=== PATIENT | male | born 1970 | race Asian ===

== ENCOUNTER 2018-07-04 20:31 | Inpatient (IN) | payer BC ==
[2018-07-04] MEDS: BENAZEPRIL 40 MG TAB PO (21:00)
[2018-07-04] MEDS: AMLODIPINE 10 MG TAB PO (21:00)
[2018-07-04] MEDS ORDERED: ACETAMINOPHEN 325 MG TAB PO (22:00)
[2018-07-04] MEDS ORDERED: ONDANSETRON 4 MG TAB PO (22:00)
[2018-07-04] MEDS ORDERED: DEXTROSE 50% 50 ML SYRINGE IV ×2 (23:30)
[2018-07-04] MEDS ORDERED: GLUCOSE GEL 15 GRAM TUBE BUCCAL (23:30)
[2018-07-04] MEDS ORDERED: GLUCAGON 1 MG INJ IM (23:30)
[2018-07-04] MEDS ORDERED: GLUCOSE GEL 15 GRAM TUBE PO ×2 (23:30)
[2018-07-04] MEDS: GEMFIBROZIL 600 MG TAB PO (23:55)
[2018-07-04] MEDS: LEVETIRACETAM 500 MG TAB PO (23:56)
[2018-07-04] MEDS: ATENOLOL 50 MG TAB PO (23:56)
[2018-07-04] MEDS: FERROUS SULFATE (EC) 325 MG TAB PO (23:56)
[2018-07-04] MEDS: ALLOPURINOL 100 MG TAB PO (23:56)
[2018-07-05] MEDS: ACCU-CHEK XX (02:00)
[2018-07-05] MEDS: INSULIN ASPART [NOVOLOG] 3 ML PEN SC ×4 (08:00→20:56)
[2018-07-05 08:29] LABS: ADD MAN DIFF? NO
[2018-07-05 08:38] LABS: BASOPHILS % 0.8 % (0.0-2.0); EOSINOPHILS # 0.1 10^3/ul (0.0-0.5); EOSINOPHILS % 2.3 % (0.0-7.0); HEMATOCRIT 28.1 % (42.0-52.0); HEMOGLOBIN 8.8 g/dl (14.0-18.0); LYMPHOCYTES # 1.1 10^3/ul (0.8-2.9); LYMPHOCYTES % 22.1 % (15.0-51.0); MEAN CORPUSCULAR HEMOGLOBIN 27.5 pg (29.0-33.0); MEAN CORPUSCULAR HGB CONC 31.3 g/dl (32.0-37.0); MEAN CORPUSCULAR VOLUME 87.8 fl (82.0-101.0); MONOCYTE # 0.4 10^3/ul (0.3-0.9); NEUTROPHIL # 3.5 10^3/ul (1.6-7.5); NEUTROPHILS % 66.6 % (39.0-77.0); NUCLEATED RED BLOOD CELLS% 0.8 /100WBC (0.0-0.0); PLATELET COUNT 257 10^3/UL (140-415); RED CELL DISTRIBUTION WIDTH 15.9 % (11.5-14.5)
[2018-07-05 08:38] LABS: WHITE BLOOD COUNT 5.2 10^3/ul (4.8-10.8)
[2018-07-05 08:59] LABS: ALANINE AMINOTRANSFERASE 22 IU/L (13-69); ALBUMIN/GLOBULIN RATIO 1.73; ALKALINE PHOSPHATASE 40 IU/L (42-121); ANION GAP 11 (5-13); ASPARTATE AMINO TRANSFERASE 21 IU/L (15-46); BILIRUBIN,INDIRECT 0.6 mg/dl (0-1.1); BILIRUBIN,TOTAL 0.6 mg/dl (0.2-1.3); BLOOD UREA NITROGEN 20 mg/dl (7-20); CALCIUM 8.9 mg/dl (8.4-10.2); CARBON DIOXIDE 23 mmol/L (21-31); CHLORIDE 103 mmol/L (97-110); CREATININE 0.88 mg/dl (0.61-1.24); Estimated GFR > 60 mL/min (>60); GLUCOSE 203 mg/dl (70-220); POTASSIUM 4.4 mmol/L (3.5-5.1); SODIUM 137 mmol/L (135-144); TOTAL PROTEIN 6.3 g/dl (6.1-8.1)
[2018-07-05] MEDS: AMLODIPINE 10 MG TAB PO (09:49)
[2018-07-05] MEDS: GEMFIBROZIL 600 MG TAB PO ×2 (09:49→20:52)
[2018-07-05] MEDS: FERROUS SULFATE (EC) 325 MG TAB PO ×2 (09:49→20:52)
[2018-07-05] MEDS: ATENOLOL 50 MG TAB PO (09:49)
[2018-07-05] MEDS: LINAGLIPTIN 5 MG TABLET PO (09:49)
[2018-07-05] MEDS: ALLOPURINOL 100 MG TAB PO (09:49)
[2018-07-05] MEDS: LEVETIRACETAM 500 MG TAB PO ×2 (09:50→20:52)
[2018-07-05] MEDS: BENAZEPRIL 40 MG TAB PO (09:50)
[2018-07-05 13:54] LABS: HEMATOCRIT 29.4 % (42.0-52.0); HEMOGLOBIN 9.2 g/dl (14.0-18.0)
[2018-07-05] MEDS: PEG/ELECTROLYTES 4L BTL PO ×2 (16:23→20:38)
[2018-07-05] MEDS: BISACODYL (EC) 5 MG TAB PO ×2 (16:23→20:52)
[2018-07-05] MEDS: PANTOPRAZOLE 40 MG INJ IV (17:24)
[2018-07-06] MEDS: DEXTROSE 5%-0.45% NACL 500 ML IV ×2 (00:54→12:30)
[2018-07-06] MEDS: ACCU-CHEK XX (02:00)
[2018-07-06] MEDS: PANTOPRAZOLE 40 MG INJ IV ×2 (06:03→17:19)
[2018-07-06 06:11] LABS: ADD MAN DIFF? NO
[2018-07-06 06:18] LABS: BASOPHILS % 0.6 % (0.0-2.0); EOSINOPHILS # 0.2 10^3/ul (0.0-0.5); EOSINOPHILS % 3.9 % (0.0-7.0); HEMOGLOBIN 8.3 g/dl (14.0-18.0); LYMPHOCYTES # 1.3 10^3/ul (0.8-2.9); LYMPHOCYTES % 27.2 % (15.0-51.0); MEAN CORPUSCULAR HEMOGLOBIN 27.9 pg (29.0-33.0); MEAN CORPUSCULAR HGB CONC 31.9 g/dl (32.0-37.0); MEAN CORPUSCULAR VOLUME 87.5 fl (82.0-101.0); MEAN PLATELET VOLUME 10.1 fl (7.4-10.4); MONOCYTE # 0.4 10^3/ul (0.3-0.9); MONOCYTES % 7.7 % (0.0-11.0); NEUTROPHIL # 2.8 10^3/ul (1.6-7.5); PLATELET COUNT 245 10^3/UL (140-415); RED BLOOD COUNT 2.97 10^6/ul (4.70-6.10); RED CELL DISTRIBUTION WIDTH 16.2 % (11.5-14.5)
[2018-07-06 06:18] LABS: WHITE BLOOD COUNT 4.7 10^3/ul (4.8-10.8)
[2018-07-06 06:33] LABS: INR 0.98; PROTIME 13.1 Sec (11.9-14.9)
[2018-07-06 06:48] LABS: ALANINE AMINOTRANSFERASE 19 IU/L (13-69); ALBUMIN 3.7 g/dl (3.3-4.9); ALBUMIN/GLOBULIN RATIO 1.68; ALKALINE PHOSPHATASE 39 IU/L (42-121); ANION GAP 10 (5-13); ASPARTATE AMINO TRANSFERASE 17 IU/L (15-46); BILIRUBIN,INDIRECT 0.6 mg/dl (0-1.1); BILIRUBIN,TOTAL 0.6 mg/dl (0.2-1.3); BLOOD UREA NITROGEN 21 mg/dl (7-20); CALCIUM 8.8 mg/dl (8.4-10.2); CARBON DIOXIDE 23 mmol/L (21-31); CHLORIDE 107 mmol/L (97-110); Estimated GFR > 60 mL/min (>60); GLUCOSE 158 mg/dl (70-220); POTASSIUM 4.3 mmol/L (3.5-5.1); SODIUM 140 mmol/L (135-144); TOTAL PROTEIN 5.9 g/dl (6.1-8.1)
[2018-07-06 07:24] LABS: HEMOGLOBIN A1C 6.4 % (0-5.9)
[2018-07-06] MEDS: INSULIN ASPART [NOVOLOG] 3 ML PEN SC ×4 (08:00→20:29)
[2018-07-06] MEDS: GEMFIBROZIL 600 MG TAB PO ×2 (08:27→20:00)
[2018-07-06] MEDS: ALLOPURINOL 100 MG TAB PO (08:27)
[2018-07-06] MEDS: LINAGLIPTIN 5 MG TABLET PO (08:27)
[2018-07-06] MEDS: FERROUS SULFATE (EC) 325 MG TAB PO ×2 (08:27→20:00)
[2018-07-06] MEDS: LEVETIRACETAM 500 MG TAB PO ×2 (08:27→20:00)
[2018-07-06] MEDS: LIDOCAINE 100 MG SYRINGE (11:04)
[2018-07-06] MEDS: PROPOFOL 60 ML (11:04)
[2018-07-07] MEDS: ACCU-CHEK XX (02:12)
[2018-07-07] MEDS: PANTOPRAZOLE 40 MG INJ IV (05:05)
[2018-07-07 05:54] LABS: ADD MAN DIFF? NO
[2018-07-07 06:01] LABS: BASOPHILS % 0.7 % (0.0-2.0); EOSINOPHILS # 0.1 10^3/ul (0.0-0.5); EOSINOPHILS % 3.2 % (0.0-7.0); HEMATOCRIT 27.1 % (42.0-52.0); HEMOGLOBIN 8.5 g/dl (14.0-18.0); LYMPHOCYTES # 1.2 10^3/ul (0.8-2.9); LYMPHOCYTES % 27.1 % (15.0-51.0); MEAN CORPUSCULAR HEMOGLOBIN 27.4 pg (29.0-33.0); MEAN CORPUSCULAR HGB CONC 31.4 g/dl (32.0-37.0); MEAN CORPUSCULAR VOLUME 87.4 fl (82.0-101.0); MONOCYTE # 0.4 10^3/ul (0.3-0.9); MONOCYTES % 8.1 % (0.0-11.0); NEUTROPHIL # 2.6 10^3/ul (1.6-7.5); NEUTROPHILS % 60.4 % (39.0-77.0); PLATELET COUNT 264 10^3/UL (140-415); RED CELL DISTRIBUTION WIDTH 15.8 % (11.5-14.5)
[2018-07-07 06:01] LABS: WHITE BLOOD COUNT 4.3 10^3/ul (4.8-10.8)
[2018-07-07] MEDS: INSULIN ASPART [NOVOLOG] 3 ML PEN SC (08:02)
[2018-07-07] MEDS: LINAGLIPTIN 5 MG TABLET PO (08:06)
[2018-07-07] MEDS: LEVETIRACETAM 500 MG TAB PO (08:06)
[2018-07-07] MEDS: ALLOPURINOL 100 MG TAB PO (08:06)
[2018-07-07] MEDS: FERROUS SULFATE (EC) 325 MG TAB PO (08:06)
[2018-07-07] MEDS: GEMFIBROZIL 600 MG TAB PO (08:06)
[2018-07-07] MEDS: BENAZEPRIL 10 MG TAB PO (09:03)
[2018-07-07] MEDS: AMLODIPINE 10 MG TAB PO (09:04)
== END 2018-07-07 11:12 | disposition home or self-care (01) | DRG 379 ==
LOC: 6WM 20:31
PROVIDERS: Internal Medicine Nephrology
PROC: 0DJD8ZZ Inspection of Lower Intestinal Tract, Via Natural or Artificial Opening Endoscopic (ICD-10-PCS; principal; 2018-07-06 10:20)
PROC: 0DJ08ZZ Inspection of Upper Intestinal Tract, Via Natural or Artificial Opening Endoscopic (ICD-10-PCS; 2018-07-06 10:20)
DX: K26.4 Chronic or unspecified duodenal ulcer with hemorrhage (principal); K29.70 Gastritis, unspecified, without bleeding; Z72.0 Tobacco use; F10.10 Alcohol abuse, uncomplicated; E11.8 Type 2 diabetes mellitus with unspecified complications; D64.9 Anemia, unspecified; I10 Essential (primary) hypertension; E78.5 Hyperlipidemia, unspecified
CPT/HCPCS: 80053; 82962; 83036; 85014; 85018; 85025; 85610; 85730; 88305